=== PATIENT | male | born 1955 | race Caucasian/White ===

== ENCOUNTER 2019-02-27 12:15 | Day surgery (SDC) | payer OTHER ==
[2019-02-26 15:42] VITALS: BMI 23.6
[2019-02-27 14:34] VITALS: TEMP 97
[2019-02-27 15:41] VITALS: BP 121/75; PULSE 61
--- NOTE | 2019-03-01 16:22 | PATH ---
Surgical Pathology Report Patient Name: SURJIT MFOFETT [facility]. Rec. #: [id number] /Age/Gender: 1955 (Age: 63) / M Account: [id number] Location: U-ENDOSCOPY Taken: 02/27/2019 Received: 02/28/2019 Reported: 03/01/2019 Physicians: Gallo Noble D.O. Specimen(s) Received A: SECOND PORTION DUODENUM B: DUODENAL BULB C: ANGULARIS AND BODY D: GE JUNCTION Clinical History Functional dyspepsia Postoperative diagnosis: Same Final Diagnosis A. DUODENUM, BIOPSY: DUODENAL MUCOSA WITH MILD ACUTE AND CHRONIC DUODENITIS. B. DUODENAL BULB, BIOPSY: DUODENAL MUCOSA WITH MODERATE ACUTE AND CHRONIC DUODENITIS. C. STOMACH, ANGULARIS AND BODY, BIOPSY: GASTRIC MUCOSA WITH MILD CHRONIC GASTRITIS. IMMUNOHISTOCHEMICAL STAIN FOR H. PYLORI IS NEGATIVE. D. GE JUNCTION, BIOPSY: SQUAMOCOLUMNAR MUCOSA WITH MODERATE CHRONIC FOCAL ACUTE INFLAMMATION AND CHANGES OF MILD REFLUX ESOPHAGITIS. NO INTESTINAL METAPLASIA OR DYSPLASIA IDENTIFIED. Electronically Signed Karen Fisher M.D. Gross Description A. Received in formalin, labeled "biopsy second portion of duodenum" are 3 castanon, irregular portions of soft tissue ranging from 0.1-0.4 cm. in greatest dimension. The specimens are submitted in toto in one cassette. B. Received in formalin, labeled "biopsy duodenal bulb" are 2 castanon, irregular portions of soft tissue measuring 0.1 and 0.3 cm. in greatest dimension. The specimens are submitted in toto in one cassette. C. Received in formalin, labeled "body and angularis" are 2 castanon, irregular portions of soft tissue measuring 0.4 and 0.5 cm. in greatest dimension. The specimens are submitted in toto in one cassette. D. Received in formalin, labeled "biopsy GE junction" is a castanon, irregular portion of soft tissue measuring 0.4 cm. in greatest dimension. The specimen is submitted in toto in one cassette. 02/28/201902/28/2019
== END 2019-02-27 15:00 | disposition home or self-care (01) ==
LOC: JASU-ENDO 12:15
PROVIDERS: ATTEND Internal Medicine Gastroenterology
PROC: 0DB68ZX Excision of Stomach, Via Natural or Artificial Opening Endoscopic, Diagnostic (ICD-10-PCS; 2019-02-27)
PROC: 0DB48ZX Excision of Esophagogastric Junction, Via Natural or Artificial Opening Endoscopic, Diagnostic (ICD-10-PCS; 2019-02-27)
PROC: 0DB98ZX Excision of Duodenum, Via Natural or Artificial Opening Endoscopic, Diagnostic (ICD-10-PCS; principal; 2019-02-27 12:45)
DX: R10.13 Epigastric pain (principal); K29.80 Duodenitis without bleeding; K29.50 Unspecified chronic gastritis without bleeding; K21.0 Gastro-esophageal reflux disease with esophagitis
CPT/HCPCS: 88305-TC; 88342-TC

== ENCOUNTER 2019-03-06 09:54 | Day surgery (SDC) | payer OTHER ==
[2019-03-05 08:48] VITALS: BMI 23.6
[2019-03-06 12:25] VITALS: TEMP 98
[2019-03-06 14:54] VITALS: BP 125/70; PULSE 62
--- NOTE | 2019-03-08 17:50 | PATH ---
Surgical Pathology Report Patient Name: SURJIT MOFFETT [facility]. Rec. #: [id number] /Age/Gender: 1955 (Age: 63) / M Account: [id number] Location: U-ENDOSCOPY Taken: 03/06/2019 Received: 03/07/2019 Reported: 03/08/2019 Physicians: Gallo Noble D.O. Specimen(s) Received DESCENDING COLON POLYP Clinical History Colon screening Postoperative diagnosis: Polyp, diverticulosis, hemorrhoids Final Diagnosis DESCENDING COLON, POLYP, BIOPSY: POLYPOID COLONIC MUCOSA WITH PROMINENT LYMPHOID AGGREGATES. Electronically Signed Karen Fisher M.D. Gross Description Received in formalin, labeled "biopsy descending colon polyp" are 2 castanon, irregular portions of soft tissue averaging 0.4 cm. in greatest dimension. The specimens are submitted in toto in one cassette. 03/07/201903/07/2019
== END 2019-03-06 13:06 | disposition home or self-care (01) ==
LOC: JASU-ENDO 09:54
PROVIDERS: ATTEND Internal Medicine Gastroenterology
PROC: 0DBM8ZX Excision of Descending Colon, Via Natural or Artificial Opening Endoscopic, Diagnostic (ICD-10-PCS; principal; 2019-03-06 12:45)
DX: Z12.11 Encounter for screening for malignant neoplasm of colon (principal); K57.30 Diverticulosis of large intestine without perforation or abscess without bleeding; D12.4 Benign neoplasm of descending colon; K64.8 Other hemorrhoids
CPT/HCPCS: 88305-TC